=== PATIENT | female | born 1975 | race Two or more races ===

== ENCOUNTER → 2022-02-08 13:32 | Outpatient (CLI) | payer OTHER ==
[~2022-02-08 13:32] MED LIST: CLARITIN10 M1 PO; HYDROCHLOROTHIA25 MG PO
== END | disposition home or self-care (01) ==
LOC: LAB 13:32
PROVIDERS: ATTEND Anesthesiology
DX: E87.6 Hypokalemia (principal)

== ENCOUNTER 2022-02-09 05:02 | Day surgery (SDC) | payer OTHER ==
[~2022-02-09] VITALS: Ht 154.9 cm; Wt 72.6 kg
== END 2022-02-09 10:25 | disposition home or self-care (01) ==
LOC: CIR.AMB 05:02
PROVIDERS: ATTEND Specialist
DX: D17.0 Benign lipomatous neoplasm of skin and subcutaneous tissue of head, face and neck (principal); Z20.822 Contact with and (suspected) exposure to COVID-19; I10 Essential (primary) hypertension; Z86.16 Personal history of COVID-19